=== PATIENT | male | born 1980 | race Caucasian/White ===

== ENCOUNTER 2021-03-07 18:41 | Inpatient (IN) ==
[2021-03-07 20:14] LABS: Bilirubin,Urine Negative (Negative); Blood,Urine Negative (Negative); Clarity,Urine Clear (Clear); Color,Urine Colorless (Yellow); Glucose,Urine (UA) Normal (Normal); Ketones,Urine Negative (Negative); Leukocyte Esterase,Urine Negative (Negative); Nitrite,Urine Negative (Negative); Protein,Urine Negative (Neg-Trace); Specific Gravity,Urine < 1.005 (1.010-1.025); Urobilinogen,Urine Normal (Normal)
[2021-03-07 20:26] LABS: Amphetamine Screen,Urine Negative ng/mL (Cutoff=1000); Barbiturate Screen,Urine Negative ng/mL (Cutoff=200); Benzodiazepines Screen,Urine Negative ng/mL (Cutoff=200); Cannabinoid Screen,Urine Negative ng/mL (Cutoff = 50); Cocaine Screen,Urine Negative ng/mL (Cutoff= 300); Opiate Screen,Urine Negative ng/mL (Cutoff=300); Phencyclidine Screen,Urine Negative ng/mL (Cutoff=25)
[2021-03-07 20:43] LABS: Basophils # 0.1 K/mcL (0.0-0.2); Basophils % 0.4 %; Eosinophils # 0.1 K/mcL (0.0-0.6); Eosinophils % 0.9 %; Hematocrit 40.2 % (37.5-50.1); Hemoglobin 14.1 g/dL (12.9-16.9); Immature Granulocytes % 0.4 % (0-4); Lymphocytes # 1.9 K/mcL (0.6-4.6); Lymphocytes % 17.1 %; Mean Corpuscular HGB Conc 35.1 g/dL (31.6-35.5); Mean Corpuscular Hemoglobin 30.3 pg (28.0-33.3); Mean Corpuscular Volume 86.5 fL (83.0-100.0); Mean Platelet Volume 9.8 fL (9.4-12.4); Monocytes # 0.5 K/mcL (0.0-1.3); Monocytes % 4.5 %; Neutrophils # 8.7 K/mcL (1.6-8.9); Platelet Count 265 K/mcL (140-400); Red Blood Count 4.65 M/mcL (4.19-5.50); Red Cell Distribution Width 12.4 % (11.5-14.5); Segmented Neutrophils % 76.7 %; White Blood Count 11.3 K/mcL (4.3-11.1)
[2021-03-07 21:11] LABS: Acetaminophen < 10 mcg/mL (10-20); BUN/Creatinine Ratio 6 (6-26); Blood Urea Nitrogen 6 mg/dL (6-20); Calcium 9.8 mg/dL (8.6-10.3); Carbon Dioxide 23 mEq/L (23-29); Chloride 102 mEq/L (98-107); Ethanol < 10 mg/dL (Less than 10); Glucose 123 mg/dL (70-105); Osmolality,Calculated 277 (280-300); Potassium 3.6 mEq/L (3.5-5.1); Salicylate < 2.5 mg/dL (15.0-30.0); Sodium 134 mEq/L (136-145); eGFR For African Americans > 60 (> 60); eGFR For Non-African Americans > 60 (> 60)
[2021-03-08] MEDS ORDERED: *HR* LORazepam 2 MG/ML VIAL IM PRN (01:17)
[2021-03-08] MEDS ORDERED: traZODone 50 MG TABLET PO PRN (01:17)
[2021-03-08] MEDS ORDERED: *HR* LORazepam 1 MG TABLET PO PRN (01:17)
[2021-03-08] MEDS ORDERED: Haloperidol Lactate 5 MG/ML VIAL IM PRN (01:17)
[2021-03-08] MEDS ORDERED: haloperidoL 5 MG TABLET PO PRN (01:17)
[2021-03-08] MEDS ORDERED: Acetaminophen 325 MG TABLET PO PRN (01:17)
[2021-03-08] MEDS: hydrOXYzine pamoate 25 MG CAPSULE PO PRN ×2 (03:26→08:41)
[2021-03-08] MEDS ORDERED: clonazePAM 0.5 MG TABLET PO PRN (13:19)
[2021-03-08] MEDS ORDERED: QUEtiapine Fumarate 25 MG TABLET PO PRN (13:20)
[2021-03-08] MEDS ORDERED: MOM Conc 10 ML UD.LIQ PO PRN (14:41)
[2021-03-08] MEDS ORDERED: Mag Hydrox/Al Hydrox/Simeth 30 ML UDC PO PRN (14:41)
[2021-03-08] MEDS: FLUoxetine 20 MG CAPSULE PO SCH (16:43)
[2021-03-08] MEDS: lamoTRIgine 100 MG TABLET PO SCH (20:48)
[2021-03-08] MEDS: Ziprasidone 20 MG CAPSULE PO SCH (20:48)
[2021-03-09] MEDS: lamoTRIgine 100 MG TABLET PO SCH ×2 (08:59→20:18)
[2021-03-09] MEDS: FLUoxetine 20 MG CAPSULE PO SCH (08:59)
[2021-03-09] MEDS: Ziprasidone 20 MG CAPSULE PO SCH ×2 (09:00→20:17)
[2021-03-09] MEDS: clonazePAM 0.5 MG TABLET PO SCH ×2 (13:04→20:18)
[2021-03-09] MEDS: QUEtiapine Fumarate 25 MG TABLET PO SCH (20:18)
[2021-03-10] MEDS: Ziprasidone 20 MG CAPSULE PO SCH ×2 (08:42→20:38)
[2021-03-10] MEDS: FLUoxetine 20 MG CAPSULE PO SCH (08:43)
[2021-03-10] MEDS: lamoTRIgine 100 MG TABLET PO SCH ×2 (08:43→20:37)
[2021-03-10] MEDS: clonazePAM 0.5 MG TABLET PO SCH ×2 (08:43→20:37)
[2021-03-10] MEDS: hydrOXYzine pamoate 25 MG CAPSULE PO SCH ×2 (10:02→20:38)
[2021-03-10] MEDS: QUEtiapine Fumarate 25 MG TABLET PO SCH (20:37)
[2021-03-11] MEDS: Ziprasidone 20 MG CAPSULE PO SCH ×2 (08:32→20:43)
[2021-03-11] MEDS: lamoTRIgine 100 MG TABLET PO SCH ×2 (08:32→20:43)
[2021-03-11] MEDS: clonazePAM 0.5 MG TABLET PO SCH ×2 (08:32→20:43)
[2021-03-11] MEDS: hydrOXYzine pamoate 25 MG CAPSULE PO SCH ×2 (08:32→20:43)
[2021-03-11] MEDS: FLUoxetine 20 MG CAPSULE PO SCH (08:33)
[2021-03-11] MEDS: QUEtiapine Fumarate 25 MG TABLET PO SCH ×2 (10:31→20:43)
[2021-03-12] MEDS: QUEtiapine Fumarate 25 MG TABLET PO SCH (08:59)
[2021-03-12] MEDS: Ziprasidone 20 MG CAPSULE PO SCH (09:00)
[2021-03-12] MEDS: hydrOXYzine pamoate 25 MG CAPSULE PO SCH (09:00)
[2021-03-12] MEDS: FLUoxetine 20 MG CAPSULE PO SCH (09:01)
[2021-03-12] MEDS: lamoTRIgine 100 MG TABLET PO SCH (09:01)
[2021-03-12] MEDS: clonazePAM 0.5 MG TABLET PO SCH (09:02)
[2021-03-12 09:46] VITALS: BP 131/74; PULSE 65; TEMP 97.6; O2SAT 100
== END 2021-03-12 13:15 | disposition home or self-care (01) | DRG 885 ==
LOC: EMEROOARM 18:41 → 1ANU 03-08 00:40
PROVIDERS: ADMIT Psychiatry & Neurology Psychiatry; ATTEND Psychiatry & Neurology Psychiatry